=== PATIENT | female | born 1965 | race Caucasian/White ===

== ENCOUNTER 2018-09-30 19:57 | Observation (INO) ==
--- NOTE | 2018-09-30 20:28 | Emergency Department Note ---
Disposition Clinical Impression: Slurring of speech Chest pain Qualifiers: Chest pain type: other chest pain Qualified Code(s): R07.89 - Other chest pain Dyspnea Qualifiers: Dyspnea type: unspecified Qualified Code(s): R06.00 - Dyspnea, unspecified Disposition: Admitted As Inpatient Condition: Good Referrals: Alicia Judge, DINKEY LOCOMOTIVE ENGINEER [Primary Care Provider] - Time of Disposition: 21:55 General Adult HPI - General Stated complaint: CP/SoB/Neuro Sx Time Seen by Provider: 09/30/18 19:59 Nursing Notes Reviewed: Yes Vital Signs Reviewed: Yes - History of Present Illness HPI Narrative: 53-year-old female presents from home for evaluation. 1) patient has neurologic complaints of difficulty finding her words and difficulty speaking her words. This began yesterday at 2 PM; 30 hours prior to arrival. She notes slight numbness to the left arm. No weakness. No history of CVA or TIA. No history of atrial fibrillation. 2) patient has to 3 day history of shortness of breath worse with exertion as well as midsternal chest heaviness also worse with exertion. Shortness of breath is not changed when laying supine. She feels as though she is having trouble breathing though she knows she is oxygenating ok. Her sensation of trouble breathing did improve on her home BiPap. Chest pain is nonradiating. Patient has no cough, fever, chills, nausea, or vomiting. 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 Niles Nolen for placement of a cardiac pacemaker this coming October. PMH: Hypertension, diabetes, history of PA, obstructive sleep apnea, bipolar disorder, history of breast cancer. History of QTC prolongation. ROS: Positive: Difficulties of speech, chest pain, shortness of breath, generalized weakness. Intermittent blood in stools for approximately the past year. Negative: Fever, chills, nausea, vomiting, palpitations, diaphoresis, focal weakness - Related Data Home Medications Medication Instructions Recorded Confirmed Gabapentin [Neurontin] 3,200 mg PO HS 05/25/18 06/15/18 Losartan [Cozaar] 50 mg PO BID 05/25/18 06/15/18 Furosemide [Lasix] 40 mg PO DAILY 06/06/18 06/15/18 Aspirin 325 mg PO DAILY 06/15/18 06/15/18 LORazepam [Ativan] 0.5 mg PO TID 09/30/18 09/30/18 Metoprolol Tartrate 25 mg PO BID 09/30/18 09/30/18 traZODone [TraZODone] 100 mg PO HS 09/30/18 09/30/18 Previous Rx's Medication Instructions Recorded Nitroglycerin 0.4 mg SL Q5MIN PRN #24 tab.subl 06/25/18 Allergies Allergy/AdvReac Type Severity Reaction Status Date / Time citalopram [From Celexa] AdvReac See Verified 09/30/18 21:27 Comments Penicillins [PCN] AdvReac Rash Verified 09/30/18 21:27 tetracycline AdvReac Rash Verified 09/30/18 21:27 All systems ED: reviewed and negative except as stated. Review of Systems: As Per HPI Past Medical History - Past Medical History Medical history: Reports: cancer, CHF, hypertension Surgical history: Reports: hysterectomy Psychiatric history: Reports: anxiety, bipolar, depression CERAMIC ENGINEERING PROFESSOR history: Reports: no CERAMIC ENGINEERING PROFESSOR history - Social History Smoking Status: Current every day smoker Smokeless Tobacco Status: No Alcohol use: Reports: none Drug use: Reports: none Physical Exam Vital Signs Reviewed General: Patient is alert, oriented, and in mild distress. She is not hypoxic though is tachypneic with accessory muscle usage. Head: atraumatic, normocephalic Eye: normal appearance, PERRL, EOMI, no scleral icterus, no conjunctival injection ENT: mucous membranes moist, normal external ear exam Neck: normal inspection, trachea midline, full ROM Chest: normal inspection, symmetric chest rise Respiratory: Poor respiratory effort. Bilateral breath sounds are symmetric w ithout wheeze. There is mild bibasilar crackle. Cardiovascular: Regular rate and rhythm. No clicks, rubs, gallops, or murmors. Normal heart sounds. Bilateral radial pulses 2/4 and equal. 2+ pitting edema equal in the lower extremities. Abdomen: Bowel sounds present normoactive. Abdomen is soft, nondistended, and nontender. No guarding or rebound. No organomegaly noted. Musculoskeletal: Spontaneously moving all extremities. Skin: warm, dry, intact. Neuro: GCS 15. No facial asymmetry. Patient is answering all courses appropriately though there is hesitation and she requires effort to save her words without slurring or stuttering. Left upper extremity has decreased to sensation light touch. Strength equal bilateral in upper and lower extremities. Negative finger to nose. Psych: Patient's affect is appropriate for situation. Course Course Narrative: Cardiac echo 09/14/18 Cardiology impression: LVEF 35%. So really dilated left ventricle. No thrombus. RV size is normal with grossly normal function. [facility] 06/15/18 LVEF 25% with severe global hypokinesis. No stent placed. EKG dated 09/30/2018 at 20:05 interpreted as sinus rhythm with a rate of 94. AK 134, QRS 90, QTC 471. Left axis. Rare PVC. No T-wave inversions. Nonspecific ST-T changes. Compared to previous EKG dated 06/25/2018 showing no acute ischemic changes in comparison. ABG does not show marked hypercarbia; patient's neurologic symptoms unlikely fro m hypercarbia. Patient is oxygenating well on RA. ABG shows no retention. Patient feels better on BiPap. Will place her on BiPap more for her own comfort than for physiologic need. Serum hematology is unremarkable. Patient has no elevation in lactic acid. Chest x-ray shows no cardiomegaly and no overt pulmonary edema. CT head is unremarkable for acute process. I discussed the patient with Dr. Zhang, sound engineer audio control cardiology. Discussed the patient's history and presentation as well as her EKG and CXR and labs. Discussed my plan for admission for cardiac ischemia rule-out. Aspirin given. No further recommendations at this time. Discused the above with the admitting hospitalist, Dr. Wong. Will add CTA chest at this time. Patient is accepted for continued cardiac evaluation and monitoring with CTA pending. Chest X-Ray 09/30/18 20:00 IMPRESSION: No acute cardiopulmonary disease. Stable cardiomegaly without overt failure. D/ / Stephen Beach MD / Stephen Beach MD Interpreting Provider: Stephen Beach MD Head CT 09/30/18 20:13 IMPRESSION: No acute intracranial abnormality. D/ / 09/30/2018 21:17:43 Andres Meza MD / cecilia Interpreting Provider: Andres Meza MD Vital Signs Temperature 98.2 F 09/30/18 20:33 Pulse Rate 93 09/30/18 20:33 Respiratory Rate 16 09/30/18 20:33 Blood Pressure 158/60 09/30/18 20:33 O2 Sat by Pulse Oximetry 96 09/30/18 20:33 Temperature 98.2 F 09/30/18 20:33 Pulse Rate 93 09/30/18 20:33 Respiratory Rate 21 09/30/18 21:15 Blood Pressure 129/83 09/30/18 21:15 O2 Sat by Pulse Oximetry 98 09/30/18 21:15 Oxygen Delivery Oxygen Delivery Room Air Medical Decision Making - Lab Data Result diagrams: 09/30/18 20:27 09/30/18 20:27 Lab Results 09/30/18 09/30/18 09/30/18 Range/Units 20:27 20:27 20:27 WBC 11.1 (4.3-11.1) K/mcL RBC 4.60 (3.82-4.97) M/mcL Hgb 14.0 (11.5-15.4) g/dL Hct 41.5 (35.3-44.9) % MCV 90.2 (83.0-100.0) fL MCH 30.4 (28.0-33.3) pg MCHC 33.7 (31.6-35.5) g/dL RDW 12.7 (11.5-14.5) % Plt Count 214 (140-400) K/mcL MPV 10.5 (9.4-12.4) fL Immature Gran % 0.3 (0-4) % Seg Neutrophils % 58.8 % Lymphocytes % 25.7 % Monocytes % 7.8 % Eosinophils % 6.5 % Basophils % 0.9 % Neutrophils # 6.5 (1.6-8.9) K/mcL Lymphocytes # 2.9 (0.6-4.6) K/mcL Monocytes # 0.9 (0.0-1.3) K/mcL Eosinophils # 0.7 H (0.0-0.6) K/mcL Basophils # 0.1 (0.0-0.2) K/mcL PT 10.5 (9.4-12.1) Seconds INR 0.9 APTT 37.7 H (26.0-36.0) Seconds Sample Site ABG pH (7.32-7.45) pH Units ABG pCO2 (35-45) mmHg ABG pO2 (85-104) mmHg ABG HCO3 (21-27) mEq/L ABG Total CO2 (20-26) mEq/L ABG O2 Saturation (95-98) % ABG Base Excess (-2 to 3) mEq/L Chuy Test O2 Delivery Device Inspired O2 (1-15=lpm [id number]=%) Sodium 134 L (136-145) mEq/L Potassium 3.6 (3.5-5.1) mEq/L Chloride 102 (98-107) mEq/L Carbon Dioxide 22 L (23-29) mEq/L BUN 12 (6-20) mg/dL Creatinine 0.90 (0.60-1.20) mg/dL Est GFR ( Amer) > 60 (> 60) Est GFR (Non-Af Amer) > 60 (> 60) BUN/Creatinine Ratio 13 (6-26) Glucose 124 H (70-105) mg/dL Calculated Osmolality 279 L (280-300) Lactic Acid (0.5-2.2) mmol/L Calcium 9.2 (8.6-10.3) mg/dL Total Bilirubin (0.3-1.0) mg/dL Direct Bilirubin (0.0-0.2) mg/dL Indirect Bilirubin (0.0-1.2) mg/dL AST (13-39) Units/L ALT (7-52) Units/L Alkaline Phosphatase (34-104) Units/L Troponin I < 0.03 (< 0.04) ng/mL B-Natriuretic Peptide (Less than 100) pg/mL Serum Total Protein (6.4-8.9) g/dL Albumin (3.5-5.7) g/dL Globulin (2.4-3.5) g/dL Albumin/Globulin Ratio (1.1-2.2) Lipase (11-82) Units/L 09/30/18 09/30/18 09/30/18 Range/Units 20:27 20:27 20:27 WBC (4.3-11.1) K/mcL RBC (3.82-4.97) M/mcL Hgb (11.5-15.4) g/dL Hct (35.3-44.9) % MCV (83.0-100.0) fL MCH (28.0-33.3) pg MCHC (31.6-35.5) g/dL RDW (11.5-14.5) % Plt Count (140-400) K/mcL MPV (9.4-12.4) fL Immature Gran % (0-4) % Seg Neutrophils % % Lymphocytes % % Monocytes % % Eosinophils % % Basophils % % Neutrophils # (1.6-8.9) K/mcL Lymphocytes # (0.6-4.6) K/mcL Monocytes # (0.0-1.3) K/mcL Eosinophils # (0.0-0.6) K/mcL Basophils # (0.0-0.2) K/mcL PT (9.4-12.1) Seconds INR APTT (26.0-36.0) Seconds Sample Site ABG pH (7.32-7.45) pH Units ABG pCO2 (35-45) mmHg ABG pO2 (85-104) mmHg ABG HCO3 (21-27) mEq/L ABG Total CO2 (20-26) mEq/L ABG O2 Saturation (95-98) % ABG Base Excess (-2 to 3) mEq/L Chuy Test O2 Delivery Device Inspired O2 (1-15=lpm [id number]=%) Sodium (136-145) mEq/L Potassium (3.5-5.1) mEq/L Chloride (98-107) mEq/L Carbon Dioxide (23-29) mEq/L BUN (6-20) mg/dL Creatinine (0.60-1.20) mg/dL Est GFR ( Amer) (> 60) Est GFR (Non-Af Amer) (> 60) BUN/Creatinine Ratio (6-26) Glucose (70-105) mg/dL Calculated Osmolality (280-300) Lactic Acid 2.0 (0.5-2.2) mmol/L Calcium (8.6-10.3) mg/dL Total Bilirubin 0.4 (0.3-1.0) mg/dL Direct Bilirubin 0.1 (0.0-0.2) mg/dL Indirect Bilirubin 0.3 (0.0-1.2) mg/dL AST 13 (13-39) Units/L ALT 17 (7-52) Units/L Alkaline Phosphatase 85 (34-104) Units/L Troponin I (< 0.04) ng/mL B-Natriuretic Peptide 13 (Less than 100) pg/mL Serum Total Protein 7.2 (6.4-8.9) g/dL Albumin 4.0 (3.5-5.7) g/dL Globulin 3.2 (2.4-3.5) g/dL Albumin/Globulin Ratio 1.3 (1.1-2.2) Lipase 29 (11-82) Units/L 09/30/18 Range/Units 20:34 WBC (4.3-11.1) K/mcL RBC (3.82-4.97) M/mcL Hgb (11.5-15.4) g/dL Hct (35.3-44.9) % MCV (83.0-100.0) fL MCH (28.0-33.3) pg MCHC (31.6-35.5) g/dL RDW (11.5-14.5) % Plt Count (140-400) K/mcL MPV (9.4-12.4) fL Immature Gran % (0-4) % Seg Neutrophils % % Lymphocytes % % Monocytes % % Eosinophils % % Basophils % % Neutrophils # (1.6-8.9) K/mcL Lymphocytes # (0.6-4.6) K/mcL Monocytes # (0.0-1.3) K/mcL Eosinophils # (0.0-0.6) K/mcL Basophils # (0.0-0.2) K/mcL PT (9.4-12.1) Seconds INR APTT (26.0-36.0) Seconds Sample Site R Radial ABG pH 7.40 (7.32-7.45) pH Units ABG pCO2 41 (35-45) mmHg ABG pO2 71 L (85-104) mmHg ABG HCO3 25 (21-27) mEq/L ABG Total CO2 26 (20-26) mEq/L ABG O2 Saturation 94 L (95-98) % ABG Base Excess 0 (-2 to 3) mEq/L Chuy Test Positive O2 Delivery Device ROOM AIR Inspired O2 21.0 (1-15=lpm [id number]=%) Sodium (136-145) mEq/L Potassium (3.5-5.1) mEq/L Chloride (98-107) mEq/L Carbon Dioxide (23-29) mEq/L BUN (6-20) mg/dL Creatinine (0.60-1.20) mg/dL Est GFR ( Amer) (> 60) Est GFR (Non-Af Amer) (> 60) BUN/Creatinine Ratio (6-26) Glucose (70-105) mg/dL Calculated Osmolality (280-300) Lactic Acid (0.5-2.2) mmol/L Calcium (8.6-10.3) mg/dL Total Bilirubin (0.3-1.0) mg/dL Direct Bilirubin (0.0-0.2) mg/dL Indirect Bilirubin (0.0-1.2) mg/dL AST (13-39) Units/L ALT (7-52) Units/L Alkaline Phosphatase (34-104) Units/L Troponin I (< 0.04) ng/mL B-Natriuretic Peptide (Less than 100) pg/mL Serum Total Protein (6.4-8.9) g/dL Albumin (3.5-5.7) g/dL Globulin (2.4-3.5) g/dL Albumin/Globulin Ratio (1.1-2.2) Lipase (11-82) Units/L
[2018-09-30 20:38] LABS: ABG Base Excess 0 mEq/L (-2 to 3); ABG HCO3 25 mEq/L (21-27); ABG Oxygen Saturation 94 % (95-98); ABG PCO2 41 mmHg (35-45); ABG PO2 71 mmHg (85-104); ABG TCO2 26 mEq/L (20-26)
[2018-09-30 20:42] LABS: Basophils # 0.1 K/mcL (0.0-0.2); Basophils % 0.9 %; Eosinophils # 0.7 K/mcL (0.0-0.6); Eosinophils % 6.5 %; Hematocrit 41.5 % (35.3-44.9); Immature Granulocytes % 0.3 % (0-4); Lymphocytes # 2.9 K/mcL (0.6-4.6); Lymphocytes % 25.7 %; Mean Corpuscular HGB Conc 33.7 g/dL (31.6-35.5); Mean Corpuscular Hemoglobin 30.4 pg (28.0-33.3); Mean Corpuscular Volume 90.2 fL (83.0-100.0); Mean Platelet Volume 10.5 fL (9.4-12.4); Monocytes # 0.9 K/mcL (0.0-1.3); Monocytes % 7.8 %; Neutrophils # 6.5 K/mcL (1.6-8.9); Platelet Count 214 K/mcL (140-400); Red Cell Distribution Width 12.7 % (11.5-14.5); Segmented Neutrophils % 58.8 %; White Blood Count 11.1 K/mcL (4.3-11.1)
[2018-09-30 20:49] LABS: INR 0.9; Prothrombin Time 10.5 Seconds (9.4-12.1)
[2018-09-30 20:51] LABS: Activated Partial Thrombo Time 37.7 Seconds (26.0-36.0)
[2018-09-30] MEDS ORDERED: Aspirin 325 MG TABLET PO ONE (21:00)
[2018-09-30 21:01] LABS: Albumin/Globulin Ratio 1.3 (1.1-2.2); Bilirubin,Direct 0.1 mg/dL (0.0-0.2); Bilirubin,Indirect 0.3 mg/dL (0.0-1.2); Bilirubin,Total 0.4 mg/dL (0.3-1.0); Globulin 3.2 g/dL (2.4-3.5); Total Protein 7.2 g/dL (6.4-8.9)
[2018-09-30] MEDS ORDERED: Furosemide 40 MG/4 ML VIAL IVP ONE (21:01)
[2018-09-30 21:03] LABS: BUN/Creatinine Ratio 13 (6-26); Blood Urea Nitrogen 12 mg/dL (6-20); Calcium 9.2 mg/dL (8.6-10.3); Carbon Dioxide 22 mEq/L (23-29); Chloride 102 mEq/L (98-107); Glucose 124 mg/dL (70-105); Osmolality,Calculated 279 (280-300); Potassium 3.6 mEq/L (3.5-5.1); Sodium 134 mEq/L (136-145); eGFR For African Americans > 60 (> 60); eGFR For Non-African Americans > 60 (> 60)
[2018-09-30 21:04] LABS: Troponin I < 0.03 ng/mL (< 0.04)
--- NOTE | 2018-09-30 21:40 | Emergency Department Note ---
Disposition Clinical Impression: Slurring of speech Chest pain Qualifiers: Chest pain type: other chest pain Qualified Code(s): R07.89 - Other chest pain Dyspnea Qualifiers: Dyspnea type: unspecified Qualified Code(s): R06.00 - Dyspnea, unspecified Disposition: Admitted As Inpatient Condition: Good Referrals: Alicia Judge TOOL GRINDING TECHNICIAN [Primary Care Provider] - Time of Disposition: 21:40 General Adult HPI - General Chief complaint: ED General Medical Stated complaint: CP/SoB/Neuro Sx Time Seen by Provider: 09/30/18 19:59 Source: patient Limitations: no limitations - History of Present Illness Pain Scale: 4 - Related Data Home Medications Medication Instructions Recorded Confirmed Gabapentin [Neurontin] 3,200 mg PO HS 05/25/18 09/30/18 Losartan [Cozaar] 50 mg PO ONCE 05/25/18 09/30/18 Furosemide [Lasix] 40 mg PO DAILY 06/06/18 09/30/18 Aspirin 325 mg PO DAILY 06/15/18 09/30/18 LORazepam [Ativan] 0.5 mg PO TID 09/30/18 09/30/18 Metoprolol Tartrate 25 mg PO BID 09/30/18 09/30/18 traZODone [TraZODone] 100 mg PO HS 09/30/18 09/30/18 Previous Rx's Medication Instructions Recorded Nitroglycerin 0.4 mg SL Q5MIN PRN #24 tab.subl 06/25/18 Allergies Allergy/AdvReac Type Severity Reaction Status Date / Time citalopram [From Celexa] AdvReac See Verified 09/30/18 21:27 Comments Penicillins [PCN] AdvReac Rash Verified 09/30/18 21:27 tetracycline AdvReac Rash Verified 09/30/18 21:27 Past Medical History - Past Medical History Medical history: Reports: cancer, CHF, hypertension Surgical history: Reports: hysterectomy Psychiatric history: Reports: anxiety, bipolar, depression SENIOR RESEARCH PROJECT MANAGER history: Reports: no SENIOR RESEARCH PROJECT MANAGER history - Social History Smoking Status: Current every day smoker Smokeless Tobacco Status: No Alcohol use: Reports: none Drug use: Reports: none Physical Exam - General Limitations: no limitations General appearance: alert Course Vital Signs Temperature 98.2 F 09/30/18 20:33 Pulse Rate 93 09/30/18 20:33 Respiratory Rate 16 09/30/18 20:33 Blood Pressure 158/60 09/30/18 20:33 O2 Sat by Pulse Oximetry 96 09/30/18 20:33 Temperature 98.2 F 09/30/18 20:33 Pulse Rate 93 09/30/18 20:33 Respiratory Rate 21 09/30/18 21:15 Blood Pressure 129/83 09/30/18 21:15 O2 Sat by Pulse Oximetry 98 09/30/18 21:15 Oxygen Delivery Oxygen Delivery Room Air Medical Decision Making - Lab Data Result diagrams: 09/30/18 20:27 09/30/18 20:27 Lab Results 09/30/18 09/30/18 09/30/18 Range/Units 20:27 20:27 20:27 WBC 11.1 (4.3-11.1) K/mcL RBC 4.60 (3.82-4.97) M/mcL Hgb 14.0 (11.5-15.4) g/dL Hct 41.5 (35.3-44.9) % MCV 90.2 (83.0-100.0) fL MCH 30.4 (28.0-33.3) pg MCHC 33.7 (31.6-35.5) g/dL RDW 12.7 (11.5-14.5) % Plt Count 214 (140-400) K/mcL MPV 10.5 (9.4-12.4) fL Immature Gran % 0.3 (0-4) % Seg Neutrophils % 58.8 % Lymphocytes % 25.7 % Monocytes % 7.8 % Eosinophils % 6.5 % Basophils % 0.9 % Neutrophils # 6.5 (1.6-8.9) K/mcL Lymphocytes # 2.9 (0.6-4.6) K/mcL Monocytes # 0.9 (0.0-1.3) K/mcL Eosinophils # 0.7 H (0.0-0.6) K/mcL Basophils # 0.1 (0.0-0.2) K/mcL PT 10.5 (9.4-12.1) Seconds INR 0.9 APTT 37.7 H (26.0-36.0) Seconds Sample Site ABG pH (7.32-7.45) pH Units ABG pCO2 (35-45) mmHg ABG pO2 (85-104) mmHg ABG HCO3 (21-27) mEq/L ABG Total CO2 (20-26) mEq/L ABG O2 Saturation (95-98) % ABG Base Excess (-2 to 3) mEq/L [place]uy Test O2 Delivery Device Inspired O2 (1-15=lpm [id number]=%) Sodium 134 L (136-145) mEq/L Potassium 3.6 (3.5-5.1) mEq/L Chloride 102 (98-107) mEq/L Carbon Dioxide 22 L (23-29) mEq/L BUN 12 (6-20) mg/dL Creatinine 0.90 (0.60-1.20) mg/dL Est GFR ( Amer) > 60 (> 60) Est GFR (Non-Af Amer) > 60 (> 60) BUN/Creatinine Ratio 13 (6-26) Glucose 124 H (70-105) mg/dL Calculated Osmolality 279 L (280-300) Lactic Acid (0.5-2.2) mmol/L Calcium 9.2 (8.6-10.3) mg/dL Total Bilirubin (0.3-1.0) mg/dL Direct Bilirubin (0.0-0.2) mg/dL Indirect Bilirubin (0.0-1.2) mg/dL AST (13-39) Units/L ALT (7-52) Units/L Alkaline Phosphatase (34-104) Units/L Troponin I < 0.03 (< 0.04) ng/mL B-Natriuretic Peptide (Less than 100) pg/mL Serum Total Protein (6.4-8.9) g/dL Albumin (3.5-5.7) g/dL Globulin (2.4-3.5) g/dL Albumin/Globulin Ratio (1.1-2.2) Lipase (11-82) Units/L 09/30/18 09/30/18 09/30/18 Range/Units 20:27 20:27 20:27 WBC (4.3-11.1) K/mcL RBC (3.82-4.97) M/mcL Hgb (11.5-15.4) g/dL Hct (35.3-44.9) % MCV (83.0-100.0) fL MCH (28.0-33.3) pg MCHC (31.6-35.5) g/dL RDW (11.5-14.5) % Plt Count (140-400) K/mcL MPV (9.4-12.4) fL Immature Gran % (0-4) % Seg Neutrophils % % Lymphocytes % % Monocytes % % Eosinophils % % Basophils % % Neutrophils # (1.6-8.9) K/mcL Lymphocytes # (0.6-4.6) K/mcL Monocytes # (0.0-1.3) K/mcL Eosinophils # (0.0-0.6) K/mcL Basophils # (0.0-0.2) K/mcL PT (9.4-12.1) Seconds INR APTT (26.0-36.0) Seconds Sample Site ABG pH (7.32-7.45) pH Units ABG pCO2 (35-45) mmHg ABG pO2 (85-104) mmHg ABG HCO3 (21-27) mEq/L ABG Total CO2 (20-26) mEq/L ABG O2 Saturation (95-98) % ABG Base Excess (-2 to 3) mEq/L [place]uy Test O2 Delivery Device Inspired O2 (1-15=lpm tx87-016=%) Sodium (136-145) mEq/L Potassium (3.5-5.1) mEq/L Chloride (98-107) mEq/L Carbon Dioxide (23-29) mEq/L BUN (6-20) mg/dL Creatinine (0.60-1.20) mg/dL Est GFR ( Amer) (> 60) Est GFR (Non-Af Amer) (> 60) BUN/Creatinine Ratio (6-26) Glucose (70-105) mg/dL Calculated Osmolality (280-300) Lactic Acid 2.0 (0.5-2.2) mmol/L Calcium (8.6-10.3) mg/dL Total Bilirubin 0.4 (0.3-1.0) mg/dL Direct Bilirubin 0.1 (0.0-0.2) mg/dL Indirect Bilirubin 0.3 (0.0-1.2) mg/dL AST 13 (13-39) Units/L ALT 17 (7-52) Units/L Alkaline Phosphatase 85 (34-104) Units/L Troponin I (< 0.04) ng/mL B-Natriuretic Peptide 13 (Less than 100) pg/mL Serum Total Protein 7.2 (6.4-8.9) g/dL Albumin 4.0 (3.5-5.7) g/dL Globulin 3.2 (2.4-3.5) g/dL Albumin/Globulin Ratio 1.3 (1.1-2.2) Lipase 29 (11-82) Units/L / Range/Units 20:34 WBC (4.3-11.1) K/mcL RBC (3.82-4.97) M/mcL Hgb (11.5-15.4) g/dL Hct (35.3-44.9) % MCV (83.0-100.0) fL MCH (28.0-33.3) pg MCHC (31.6-35.5) g/dL RDW (11.5-14.5) % Plt Count (140-400) K/mcL MPV (9.4-12.4) fL Immature Gran % (0-4) % Seg Neutrophils % % Lymphocytes % % Monocytes % % Eosinophils % % Basophils % % Neutrophils # (1.6-8.9) K/mcL Lymphocytes # (0.6-4.6) K/mcL Monocytes # (0.0-1.3) K/mcL Eosinophils # (0.0-0.6) K/mcL Basophils # (0.0-0.2) K/mcL PT (9.4-12.1) Seconds INR APTT (26.0-36.0) Seconds Sample Site R Radial ABG pH 7.40 (7.32-7.45) pH Units ABG pCO2 41 (35-45) mmHg ABG pO2 71 L (85-104) mmHg ABG HCO3 25 (21-27) mEq/L ABG Total CO2 26 (20-26) mEq/L ABG O2 Saturation 94 L (95-98) % ABG Base Excess 0 (-2 to 3) mEq/L [place]uy Test Positive O2 Delivery Device ROOM AIR Inspired O2 21.0 (1-15=lpm [id number]=%) Sodium (136-145) mEq/L Potassium (3.5-5.1) mEq/L Chloride (98-107) mEq/L Carbon Dioxide (23-29) mEq/L BUN (6-20) mg/dL Creatinine (0.60-1.20) mg/dL Est GFR ( Amer) (> 60) Est GFR (Non-Af Amer) (> 60) BUN/Creatinine Ratio (6-26) Glucose (70-105) mg/dL Calculated Osmolality (280-300) Lactic Acid (0.5-2.2) mmol/L Calcium (8.6-10.3) mg/dL Total Bilirubin (0.3-1.0) mg/dL Direct Bilirubin (0.0-0.2) mg/dL Indirect Bilirubin (0.0-1.2) mg/dL AST (13-39) Units/L ALT (7-52) Units/L Alkaline Phosphatase (34-104) Units/L Troponin I (< 0.04) ng/mL B-Natriuretic Peptide (Less than 100) pg/mL Serum Total Protein (6.4-8.9) g/dL Albumin (3.5-5.7) g/dL Globulin (2.4-3.5) g/dL Albumin/Globulin Ratio (1.1-2.2) Lipase (11-82) Units/L Attestation Statement - Attestation Attestation: I reviewed the residents documentation and agree with the residents assessment and plan of care. I have personally had face to face time with the patient. (Brief History, Brief Exam, and MDM) I personally supervised and was present for the aaron/critical portions of the following procedures completed by the resid ent: EKG 53 year old female presents to the eD with compmlaintso f dyspnea and chest pain and has a histroy of cardiomyopathy and CHF and a LVEF that ranges from 25-35%. Patinet states that after bipap therapy her work of breathing has improved and she feels better and she has crackles on lung exam although there is not prominent pulmonary edema or an elevated BNP which could be a resut of her morbid obesity. We discusssed case with Dr. Zhang regional loss prevention manager staff analyst who is her staff analyst who recommend admission to the hospital and consutl with cardiology
[2018-09-30] MEDS ORDERED: Isovue-370 500 ML BOTTLE IVP ONE (21:48)
[2018-09-30] MEDS ORDERED: Acetaminophen 325 MG TABLET PO PRN (22:24)
[2018-09-30] MEDS ORDERED: *HR* LORazepam 0.5 MG TABLET PO PRN (22:25)
[2018-09-30] MEDS ORDERED: Nitroglycerin 0.4 MG TAB.SUBL SL PRN (22:25)
[2018-09-30] MEDS ORDERED: methylPREDNISolone 125 MG/2 ML VIAL IVP ONE (22:36)
--- NOTE | 2018-09-30 22:41 | Internal Med History&Physical ---
Date of Encounter: 09/30/18 Time of Encounter: 22:40 Internal Medicine - H&P: HPI Chief complaint: SOB Admitted From: Home Plans for Post Hospital Care: Home History of present illness: Mae Bowens is a 53 year old morbidly obese woman who is an active smoker with obstructive sleep apnea, hypertension, bipolar disorder and heart failure with reduced ejection fraction last seen to have an EF of 35% who presents to the emergency room complaining of increasing shortness of breath and generalized swelling and abdominal distension that has not improved with her home dose of furosemide. In the ER she was placed on Bipap. CXR was grossly unremarkable and lab work was unrevealing. Vitals: Reviewed General: Morbidly obese white woman lying in bed in no acute distress. Skin: Warm and dry. HEENT: Moist mucous membranes. No conjunctivae pallor. Neck: No lymphadenopathy. No JVD. No carotid bruits. No palpable thyroid. Chest: Diminished thoracic expansion with scattered wheezes and rhonchi in both upper lung grady. Heart: Normal S1 & S2; rhythmic. No rubs or murmurs. Abdomen: Non-distended, soft and non-tender to palpation. No peritoneal reaction. Extremities: No clubbing, cyanosis. No calf tenderness. Normal distal pulses. Neurological: Awake, alert and oriented to person, place and time. No focal deficits. Psych: Affect appropriate. Assessment/Plan 1. Acute respiratory distress: The patient is not actually hypoxic or hypercarbic but she has subjectively improved with Bipap. Her x-ray on my review does not looked unchanged from her prior so will get a contrast enhanced CT for evaluation of pulmonary edema and embolic disease. She has auscultative signs of obstructive airway disease and therefore will give a dose of steroids tonight and place her on nebulizer therapy overnight. Her response to this should be assessed in the morning. Will also place her on parenteral diuretics for the next 24hrs after which she can go back to her regular home oral dose. 2. HFrEF: On diuretics. Continue ACEI/BB. 3. Hypertension: On medications as above. 4. Smoker: 5 minutes were spent counseling and educating the patient on this habit. career services coordinator and resources were made available. 5. Obesity: Counseled and educated on therapeutic lifestyle changes for weight loss as it will be of benefit in controlling comorbidities. Chicken Cleaner evaluation advised. 6. DVT prophylaxis: SubQ heparin ordered. Past Med Surg Social Fam HX - Past Medical History Medical history: cancer, CHF, hypertension Additional medical history: BIPOLAR, SLEEP APNEA, BREAST CANCER Psychiatric history: anxiety, bipolar, depression - Past Surgical History Surgical History: hysterectomy Additional surgical history: bilateral lumpectomy, right mastectomy. ORIF LEFT FOOT X 4, CARPAL TUNNEL RELEASE - Social History Smoking Status: Current every day smoker Smokeless Tobacco Status: No Alcohol use: none Drug use: none Internal Medicine - H&P: Meds Gabapentin [Neurontin] 3,200 mg PO HS 05/25/18 [History] Losartan [Cozaar] 50 mg PO ONCE 05/25/18 [History] Furosemide [Lasix] 40 mg PO DAILY 06/06/18 [History] Aspirin 325 mg PO DAILY 06/15/18 [History] Nitroglycerin 0.4 mg SL Q5MIN PRN #24 tab.subl 06/25/18 [Rx] LORazepam [Ativan] 0.5 mg PO TID 09/30/18 [History] Metoprolol Tartrate 25 mg PO BID 09/30/18 [History] traZODone [TraZODone] 100 mg PO HS 09/30/18 [History] Allergy/AdvReac Type Severity Reaction Status Date / Time citalopram [From Celexa] AdvReac See Verified 09/30/18 21:27 Comments Penicillins [PCN] AdvReac Rash Verified 09/30/18 21:27 tetracycline AdvReac Rash Verified 09/30/18 21:27 All Systems PM: A 10-system review of systems was performed and is negative for pertinent findings except as documented above in the HPI. Family history reviewed and fou nd non-contributory. - Constitutional Vitals: Temp Pulse Resp BP Pulse Ox 98.2 F 93 21 129/83 98 09/30/18 20:33 09/30/18 20:33 09/30/18 21:15 09/30/18 21:15 09/30/18 21:15 Exam: . Internal Med - H&P Results - Labs CBC & Chem 7: 09/30/18 20:27 09/30/18 20:27 Labs: Short CBC 09/30/18 Range/Units 20:27 WBC 11.1 (4.3-11.1) K/mcL Hgb 14.0 (11.5-15.4) g/dL Hct 41.5 (35.3-44.9) % Plt Count 214 (140-400) K/mcL Neutrophils # 6.5 (1.6-8.9) K/mcL BMP 09/30/18 20:27 Sodium 134 L Potassium 3.6 Chloride 102 Carbon Dioxide 22 L BUN 12 Creatinine 0.90 Glucose 124 H Calcium 9.2 Cardiac Enzymes 09/30/18 Range/Units 20:27 Troponin I < 0.03 (< 0.04) ng/mL Liver Function 09/30/18 Range/Units 20:27 Total Bilirubin 0.4 (0.3-1.0) mg/dL Direct Bilirubin 0.1 (0.0-0.2) mg/dL AST 13 (13-39) Units/L ALT 17 (7-52) Units/L Alkaline Phosphatase 85 (34-104) Units/L Albumin 4.0 (3.5-5.7) g/dL - ABG Interpretation ABG results: 09/30/18 20:34 ABG pH 7.40 ABG pCO2 41 ABG pO2 71 L ABG HCO3 25 ABG Total CO2 26 ABG O2 Saturation 94 L ABG Base Excess 0 - Impressions ITS Impressions Chest X-Ray 09/30/18 20:00 IMPRESSION: No acute cardiopulmonary disease. Stable cardiomegaly without overt failure. D/ / Stephen Beach MD / Stephen Beach MD Interpreting Provider: Stephen Beach MD Head CT 09/30/18 20:13 IMPRESSION: No acute intracranial abnormality. D/ / 09/30/2018 21:17:43 Andres Meza MD / cecilia Interpreting Provider: Andres Meza MD - Time Spent With Patient Total time spent is greater than 50% in coordination of care (as documented) at patient's floor/unit and/or counseling patient: Greater than 35 minutes
[2018-09-30] MEDS: Ipratropium/Albuterol Neb 3 ML IH SCH (23:55)
[2018-10-01] MEDS: Ipratropium/Albuterol Neb 3 ML IH SCH ×2 (04:30→07:41)
[2018-10-01] MEDS ORDERED: *HR* Heparin 5,000 UNIT/ML VIAL SQ SCH (06:00)
[2018-10-01 07:41] VITALS: BP 112/73
[2018-10-01] MEDS ORDERED: Furosemide 40 MG/4 ML VIAL IVP SCH ×2 (09:00→09:45)
[2018-10-01] MEDS ORDERED: Aspirin 325 MG TABLET PO SCH (09:00)
--- NOTE | 2018-10-01 12:41 | Electrocardiograph Report ---
[address] [address] Test Date: 2018-09-30 Pat Name: Mae Bowens Department: EXAM4 Room: 2A Gender: F Biomedical Specialist: : [id number] Requested By: Elena Sin Order Number: [id number] Reading MD: Tesfaye Baltazar Measurements Intervals [place] Rate: 94 P: 51 [place]: 194 QRS: -37 QRSD: 90 T: 66 QT: 376 QTc: 471 Interpretive Statements Sinus rhythm W PVCS Left atrial enlargement Left axis deviation Poor R wave progression Electronically Signed On 10-01-2018 12:39:35 EDT by Tesfaye Baltazar
--- NOTE | 2018-10-01 13:21 | Discharge Summary ---
Date of Encounter: 10/01/18 Time of Encounter: 13:18 - Discharge Diagnosis (1) CHF exacerbation Priority: Primary Status: Acute Qualifiers: Heart failure type: systolic Qualified Code(s): I50.23 - Acute on chronic systolic (congestive) heart failure (2) Acute respiratory distress Priority: Secondary Status: Acute (3) Non-compliant patient Priority: Secondary Status: Acute (4) Chest pain Priority: Secondary Status: Acute Qualifiers: Chest pain type: unspecified Qualified Code(s): R07.9 - Chest pain, unspecified Hospital course: AMA DISCHARGE Ms. Bowens is a 53 year old female with history of morbid obesity, tobacco abuse, NAMRATA, hypertension, and systolic heart failure presented with shortness of breath and generalized swelling concerning for acute systolic heart failure exacerbation. Patient was briefly on BiPAP but improved with IV Lasix. The next morning, patient stated she was feeling better so he left AMA before she was seen by this provider. - Time Spent with Patient Total time spent providing and/or coordinating discharge services: Time spent: Less than 30 minutes - Discharge Medications Prescriptions: Continued Losartan [Cozaar] 50 mg PO ONCE Gabapentin [Neurontin] 3,200 mg PO HS Furosemide [Lasix] 40 mg PO DAILY Aspirin 325 mg PO DAILY Nitroglycerin 0.4 mg SL Q5MIN PRN #24 tab.subl PRN Reason: Chest Pain LORazepam [Ativan] 0.5 mg PO TID traZODone [TraZODone] 50 - 100 mg PO HS PRN PRN Reason: Sleep Metoprolol Tartrate 25 mg PO BID Methylphenidate HCl [Ritalin] 5 mg PO DAILY Home Medications: Gabapentin [Neurontin] 3,200 mg PO HS 05/25/18 [History] Losartan [Cozaar] 50 mg PO ONCE 05/25/18 [History] Furosemide [Lasix] 40 mg PO DAILY 06/06/18 [History] Aspirin 325 mg PO DAILY 06/15/18 [History] Nitroglycerin 0.4 mg SL Q5MIN PRN #24 tab.subl 06/25/18 [Rx] LORazepam [Ativan] 0.5 mg PO TID 09/30/18 [History] Metoprolol Tartrate 25 mg PO BID 09/30/18 [History] traZODone [TraZODone] 50 - 100 mg PO HS PRN 09/30/18 [History] Methylphenidate HCl [Ritalin] 5 mg PO DAILY 10/01/18 [History] Allergies/Adverse Reactions: Allergy/AdvReac Type Severity Reaction Status Date / Time citalopram [From Celexa] AdvReac See Verified 09/30/18 21:27 Comments Penicillins [PCN] AdvReac Rash Verified 09/30/18 21:27 tetracycline AdvReac Rash Verified 09/30/18 21:27 Date of admission: 09/30/18 22:18 Primary care physician: Alicia Judge CNP Consults: 10/01/18 00:14 Consult to Mathematician [CONS] Routine Reason for SW Consult: cpap services with [facility]. resume services - Constitutional Vitals: Temp Pulse Resp BP Pulse Ox 97.8 F 103 21 112/73 98 10/01/18 07:38 10/01/18 07:38 10/01/18 07:43 10/01/18 07:38 10/01/18 07:43 Exam: Was not examined by this provider because left AMA before she was seen - Patient Status Disposition: Left Against Medical Advice Condition: Fair Functional capacity at discharge: independent ambulation Overall status at discharge: patient is not back to baseline - Discharge Instructions Forms: ED Satisfaction Letter, Work/School Release - Diet and Activity Activity: resume usual activities as tolerated Diet: low salt diet
[2018-10-01] MEDS ORDERED: Gabapentin 400 MG CAPSULE PO SCH (21:00)
[2018-10-01] MEDS ORDERED: traZODone 50 MG TABLET PO SCH (21:00)
[2018-10-02] MEDS ORDERED: Furosemide 40 MG TABLET PO SCH (09:00)
== END 2018-10-01 10:00 | disposition left against medical advice (07) ==
LOC: EMEROOARM 19:57 → 2ANU 19:57 → SUATTDRO 22:18 → 2ANU 23:04
PROVIDERS: ADMIT Internal Medicine Nephrology; ATTEND Internal Medicine

== ENCOUNTER 2021-05-13 10:49 | Observation (INO) ==
[2021-05-13] MEDS ORDERED: 0.9 % Sodium Chloride 1,000 ML IVC SCH (11:15)
[2021-05-13 11:26] LABS: Basophils # 0.1 K/mcL (0.0-0.2); Basophils % 1.1 %; Eosinophils # 0.6 K/mcL (0.0-0.6); Eosinophils % 7.3 %; Hematocrit 38.7 % (35.3-44.9); Hemoglobin 13.3 g/dL (11.5-15.4); Immature Granulocytes % 0.2 % (0-4); Lymphocytes # 2.6 K/mcL (0.6-4.6); Lymphocytes % 31.9 %; Mean Corpuscular HGB Conc 34.4 g/dL (31.6-35.5); Mean Corpuscular Hemoglobin 31.5 pg (28.0-33.3); Mean Corpuscular Volume 91.7 fL (83.0-100.0); Mean Platelet Volume 9.8 fL (9.4-12.4); Monocytes # 0.7 K/mcL (0.0-1.3); Monocytes % 8.6 %; Neutrophils # 4.2 K/mcL (1.6-8.9); Platelet Count 253 K/mcL (140-400); Red Blood Count 4.22 M/mcL (3.82-4.97); Red Cell Distribution Width 12.6 % (11.5-14.5); Segmented Neutrophils % 50.9 %; White Blood Count 8.2 K/mcL (4.3-11.1)
[2021-05-13 11:55] LABS: Blood Urea Nitrogen 11 mg/dL (6-20); Calcium 9.8 mg/dL (8.6-10.3); Carbon Dioxide 26 mEq/L (23-29); Chloride 102 mEq/L (98-107); Glucose 74 mg/dL (70-105); Osmolality,Calculated 282 (280-300); Potassium 3.9 mEq/L (3.5-5.1); Sodium 137 mEq/L (136-145)
[2021-05-13 12:00] LABS: Bilirubin,Urine Negative (Negative); Blood,Urine Negative (Negative); Clarity,Urine Clear (Clear); Color,Urine Colorless (Yellow); Glucose,Urine (UA) Normal (Normal); Ketones,Urine Negative (Negative); Leukocyte Esterase,Urine Negative (Negative); Nitrite,Urine Negative (Negative); Protein,Urine Negative (Neg-Trace); Specific Gravity,Urine 1.006 (1.010-1.025); Urobilinogen,Urine Normal (Normal)
[2021-05-13 13:32] LABS: BUN/Creatinine Ratio 14 (6-26); eGFR For African Americans > 60 (> 60); eGFR For Non-African Americans > 60 (> 60)
[2021-05-13] MEDS ORDERED: OLANZapine 10 MG TAB.RAPDIS PO PRN (13:54)
[2021-05-13] MEDS ORDERED: clonazePAM 1 MG TABLET PO PRN (13:54)
[2021-05-13 13:55] VITALS: O2SAT 95
[2021-05-13] MEDS ORDERED: Naloxone 0.4 MG/ML INJ IVP PRN (13:55)
[2021-05-13] MEDS ORDERED: Ondansetron 4 MG/2 ML VIAL IVP PRN (13:55)
[2021-05-13 14:23] VITALS: BP 153/83; PULSE 102; TEMP 98.6
[2021-05-13] MEDS ORDERED: Gabapentin 400 MG CAPSULE PO SCH (15:00)
[2021-05-13] MEDS ORDERED: Isovue-370 500 ML BOTTLE IVP ONE (17:16)
[2021-05-13] MEDS ORDERED: Budesonide/Formoterol 160/4.5 1 PUFF INH IH SCH (21:00)
[2021-05-13] MEDS ORDERED: Apixaban 5 MG TABLET PO SCH (21:00)
[2021-05-13] MEDS ORDERED: traZODone 50 MG TABLET PO SCH (21:00)
[2021-05-14] MEDS ORDERED: FLUoxetine 20 MG CAPSULE PO SCH (09:00)
[2021-05-14] MEDS ORDERED: Metoprolol XL (24 HR) Succ 50 MG TAB.ER.24H PO SCH (09:00)
[2021-05-14] MEDS ORDERED: Furosemide 40 MG TABLET PO SCH (09:00)
[2021-05-14] MEDS ORDERED: BuPROPion XL (24 HR) 150 MG TABLET PO SCH (09:00)
== END 2021-05-13 17:56 | disposition left against medical advice (07) ==
LOC: EMEROOARM 10:49 → 3BNU 10:49
PROVIDERS: ADMIT Hospitalist; ATTEND Hospitalist